=== PATIENT | female | born 1990 | race American Indian/Alaskan Native ===

== ENCOUNTER 2017-12-16 07:58 | Inpatient (IN) | payer BC, MEDICAID, OTHER ==
[2017-12-16] MEDS ORDERED: Lidocaine 1% 30 ML SDV INJECT PRN (08:16)
[2017-12-16] MEDS ORDERED: Lactated Ringers 1,000 ML IV SCH (08:16)
[2017-12-16] MEDS ORDERED: Nalbuphine 10 MG/1 ML Vial IM PRN (08:16)
[2017-12-16] MEDS ORDERED: Sodium Chloride 0.9% 10 ML Syringe FLUSH PRN (08:16)
[2017-12-16] MEDS ORDERED: Lactated Ringers 500 ML IV ONE (08:16)
[2017-12-16] MEDS ORDERED: Methylergonovine 0.2 MG/1 ML Amp IM PRN (08:16)
[2017-12-16] MEDS ORDERED: Ondansetron 4 MG/2 ML SDV IV PRN (08:16)
[2017-12-16] MEDS ORDERED: Oxytocin/Normal Saline 30 UNIT/500 ML BAG IV SCH ×2 (08:16→09:17)
[2017-12-16] MEDS ORDERED: Carboprost Tromethamine 250 MCG/1 ML Amp IM PRN (08:54)
[2017-12-16] MEDS ORDERED: Misoprostol 400 MCG (4 X 100 MCG TAB) RECTAL PRN (08:54)
[2017-12-16] MEDS ORDERED: Tranexamic Acid 1,000 MG in Sodium Chloride 0.9% 100 ML IV PRN (08:54)
[2017-12-16] MEDS ORDERED: Acetaminophen 325 MG Tab PO PRN (08:54)
[2017-12-16] MEDS ORDERED: Nalbuphine 10 MG/1 ML Vial ONE ×2 (09:05→09:06)
[2017-12-16] MEDS ORDERED: Zolpidem 5 MG Tab PO PRN (12:05)
[2017-12-16] MEDS ORDERED: Benzocaine/Menthol 20%-0.5% Spray 56 GM Canister TOP PRN (12:05)
[2017-12-16] MEDS ORDERED: Simethicone 80 MG Tab.Chew PO PRN (12:05)
[2017-12-16] MEDS: Ibuprofen 800 MG Tab PO PRN (20:32)
[2017-12-16] MEDS: Docusate Sodium 100 MG Cap PO PRN (20:32)
--- NOTE | 2017-12-16 21:58 | HP ---
HISTORY OF PRESENT ILLNESS: This patient is a 27-year-old 3, now para 2, AB1 patient, who is followed by Dr. May. This history and physical is done after the patient's vaginal delivery. The patient did have a very rapid spontaneous vaginal delivery by the nurses, and this was a viable female, who weighed 6 pounds 7 ounces and had scores of 8 and 9. Actually, I was not called to come for the delivery, but the nurses had also spoken to me about 10 minutes earlier to give and to get a Nubain 20 mg IM order, which I did give. The patient did rapidly deliver a short time later, and I was called and notified after the delivery occurred. I was in the clinic adjacent to the hospital, and when I received the call, I did immediately come to Labor and Delivery. The patient did not have any lacerations, and we were able to deliver the placenta spontaneous and intact. Estimated blood loss was approximately 250 mL. IV Pitocin was utilized in the period, and fundal massage was also utilized. Sponge and needle count and instrument count, etc., were correct. Her course is otherwise quite uncomplicated. A review of the EHR from the clinic shows that she is immune to rubella and is negative for group B Strep. She does have gestational diabetes, however, and she states that her 2- hour postprandial blood sugar last evening was 139, and actually, she had a 107 of 2-hour postprandial blood sugar a day before that, and her fasting blood sugars she reports are in the 78 to 95 range. Her HARIS is 01/02, and the patient is currently at 37 weeks 4 days' gestation. PAST MEDICAL HISTORY: She denies any knowledge of heart, lung, liver, or kidney disease. ALLERGIES: None known. MEDICATIONS AT PRESENT: vitamins. PREVIOUS SURGICAL HISTORY: Consists of appendectomy. FAMILY HISTORY: Noncontributory. SOCIAL HISTORY: [place] the [place] area with her boyfriend, Jose Daniel. She is a nonsmoker and does not use alcohol, and she does admit to using marijuana a little bit in the early , she states. PHYSICAL EXAMINATION: Vital Signs: All within normal limits. HEENT: The sclerae are nonicteric. Lungs: Clear to A. Heart: Regular rhythm without murmur. Abdomen: In the state, and fundus is firm. There is negative CVA tenderness. Please see our dictated delivery note also. Extremities: Negative. IMPRESSION: Gestational diabetes and at 37 weeks 4 days' gestation, who has had very rapid spontaneous vaginal delivery by nurses. The patient and baby remained very stable. We will continue to follow her closely in the period, and possibly, the patient may be able to go home tomorrow. [facility] /[id number]
[2017-12-17] MEDS: Ibuprofen 800 MG Tab PO PRN ×2 (04:48→18:15)
--- NOTE | 2017-12-17 06:28 | DEL ---
DATE: 12/16/2017 The patient has proceeded on for a rapid spontaneous vaginal delivery by the nurses. Actually, I have not received a call to come for Labor and Delivery because things happened so fast apparently, and the nurses did call me shortly after the delivery, and as I was finishing up matters in the adjacent clinic, I immediately came to the delivery room area. Angela did have a spontaneous rapid delivery as mentioned above, and she did have a viable female, who had scores of 8 and 9 and the weight was later reported as 6 pounds 7 ounces. We did closely inspect the vaginal vault, and there were no lacerations whatsoever. The placenta was delivered spontaneous and intact. Estimated blood loss was approximately 250 mL. A sample of cord blood was obtained of course. The patient and the baby have continued to do exceptionally well in the immediate period. IV Pitocin was utilized of course and the uterus did firm up very nicely. Sponge and instrument count was reported and confirmed to be correct. The patient remains very stable in the state. [facility] /[id number]
[2017-12-17] MEDS: Docusate Sodium 100 MG Cap PO PRN (08:54)
[2017-12-17] MEDS: Prenatal Multivitamin with Calcium/Folic Acid/Iron Tab PO SCH (08:54)
[2017-12-18] MEDS: Ibuprofen 800 MG Tab PO PRN (02:20)
[2017-12-18] MEDS: Docusate Sodium 100 MG Cap PO PRN ×2 (02:20→08:22)
[2017-12-18] MEDS: Prenatal Multivitamin with Calcium/Folic Acid/Iron Tab PO SCH (08:22)
--- NOTE | 2017-12-19 07:53 | DISCH ---
HISTORY OF PRESENT ILLNESS: This patient is a 27-year-old, 3, now para 2, AB 1 patient, who is followed by Dr. May. Please see our dictated history and physical for admission as well as her delivery note. Prenatally, the patient has had gestational diabetes, which has been under fairly good control by dietary measures. She did have an HARIS of 01/02, and she is actually at 37 weeks 4 days' gestation when she comes into the hospital in very active labor. Also, a review of her records showed that she is immune to rubella. She did admit to marijuana usage very early in the , but states that was a long time ago. She is negative for group B strep. Her hospital course revealed that she did proceed on very rapidly to have a rapid spontaneous vaginal delivery by the nurses. She did have a viable female, who weighed 6 pounds 7 ounces and had scores of 8 and 9. There were no lacerations. The placenta was spontaneous and intact. Actually, I was not called to come for the delivery, but the nurses did call me shortly after the delivery occurred, and I responded immediately since I was in the clinic adjacent to the hospital. Please see my dictated history and physical as well as delivery note as mentioned above. The patient and her baby had continued to do very well. She is breast-feeding and that appears to be quite well established. The patient remains afebrile, and her discharge hemoglobin today is 10.5. Her diet on discharge is regular. DISCHARGE INSTRUCTIONS: Consisted of to please call us at once if any questions or problems whatsoever or any problems with excessive bleeding, excess pain, or fever. She assures me that she will keep us closely informed. We did emphasize the importance of healthy well-balanced nutritional measures as well as adequate hydration. DISCHARGE MEDICATIONS: 1. Consisted of continuing to take her vitamins at home. 2. She will use either ibuprofen or Tylenol p.r.n. for any discomfort. 3. She also will use Colace p.r.n. constipation. FOLLOWUP APPOINTMENT: She states that she does have an appointment this coming already with Dr. May in the office for herself, and she will call the clinic this week and notify them to change that appointment for her baby girl. OPERATIONS AND PROCEDURES: Rapid spontaneous vaginal delivery of viable female, 6 pounds 7 ounces with scores of 8 and 9. No lacerations sustained. FINAL DIAGNOSES: 1. at 37 weeks 4 days' gestation, delivered. 2. The patient is a 3, now para 2, AB 1 patient. 3. Gestational diabetes. 4. Marijuana usage early in . [facility] /[id number]
== END 2017-12-18 12:40 | disposition home or self-care (01) | DRG 560 ==
LOC: DL.OBCHECK 07:58 → DL.OB 08:16 → OBSVTOIN 09:17
PROVIDERS: ADMIT Family Medicine; ATTEND Obstetrics & Gynecology
PROC: 10E0XZZ Delivery of Products of Conception, External Approach (ICD-10-PCS; principal; 2017-12-16)
DX: O24.420 Gestational diabetes mellitus in childbirth, diet controlled (principal); O62.3 Precipitate labor; Z3A.37 37 weeks gestation of pregnancy; Z37.0 Single live birth
CPT/HCPCS: 36415; 85027; A9270-GY; J2300; J2590; J7120

== ENCOUNTER 2019-09-08 16:59 | Inpatient (IN) | payer BC ==
[2019-09-08] MEDS ORDERED: Ondansetron 4 MG/2 ML SDV IVPUSH PRN (17:15)
[2019-09-08] MEDS ORDERED: fentaNYL 100 MCG/2 ML SDV IVPUSH PRN (17:15)
[2019-09-08] MEDS ORDERED: Sodium Chloride 0.9% 10 ML Syringe FLUSH PRN (17:15)
[2019-09-08] MEDS ORDERED: Lactated Ringers 1,000 ML IV ONE (17:15)
[2019-09-08] MEDS ORDERED: Oxytocin/Normal Saline 30 UNIT/500 ML BAG IV SCH (17:15)
[2019-09-08] MEDS ORDERED: Methylergonovine 0.2 MG/1 ML Amp IM PRN (17:15)
[2019-09-08] MEDS ORDERED: Lactated Ringers 1,000 ML IV SCH (17:15)
[2019-09-08] MEDS ORDERED: Misoprostol 400 MCG (4 X 100 MCG TAB) RECTAL PRN ×2 (17:15→20:39)
[2019-09-08] MEDS ORDERED: Tranexamic Acid 1,000 MG in Sodium Chloride 0.9% 100 ML IV PRN ×2 (17:15→20:39)
[2019-09-08] MEDS ORDERED: Lidocaine 1% 30 ML SDV INJECT PRN (17:15)
[2019-09-08] MEDS ORDERED: Carboprost Tromethamine 250 MCG/1 ML Amp IM PRN (17:15)
[2019-09-08] MEDS: Acetaminophen 325 MG Tab PO PRN (20:14)
[2019-09-08] MEDS ORDERED: Simethicone 80 MG Tab.Chew PO PRN (20:39)
[2019-09-08] MEDS ORDERED: Measles, Mumps & Rubella Vaccine 0.5 ML SDV SUBCUT ONE (20:39)
[2019-09-08] MEDS ORDERED: Acetaminophen 325 MG Tab PO PRN (20:39)
[2019-09-08] MEDS ORDERED: Benzocaine/Menthol 20%-0.5% Spray 56 GM Canister TOP PRN (20:39)
[2019-09-08] MEDS: Ibuprofen 800 MG Tab PO PRN (21:11)
[2019-09-09] MEDS: Ibuprofen 800 MG Tab PO PRN ×2 (05:50→18:13)
[2019-09-09] MEDS: Prenatal Multivitamin with Calcium/Folic Acid/Iron Tab PO SCH (09:24)
[2019-09-09] MEDS: Acetaminophen 325 MG Tab PO PRN ×3 (09:24→21:06)
[2019-09-09] MEDS: Docusate Sodium 100 MG Cap PO PRN ×2 (09:24→21:02)
--- NOTE | 2019-09-09 10:37 | HP ---
CHIEF COMPLAINT: Leakage of fluid with regular contractions. HISTORY OF PRESENT ILLNESS: A 28-year-old, 4, para 2-0-1-2, currently at 37-4/7 weeks based on her last menstrual period confirmed with 25-week ultrasound, presented to the hospital reporting clear rupture of fluid around 2 o'clock this afternoon, followed readily by regular contractions that were increasing in force and frequency. Nurse checking her at that time said that she was 3 cm dilated and 60% effaced. No mention of patient's previous precipitous deliveries and the patient allowed to proceed through labor on her own. She is denying any symptoms of preeclampsia. Reports that she has been doing well with controlling her carbohydrates and checking her blood sugars. No other acute concerns or problems at this time. PAST OBSTETRICAL HISTORY: 25-week anatomy ultrasound was normal. Cervical length 3.88 cm. Anterior placenta. 1-hour glucose of 133. Hepatitis C negative. RPR nonreactive. Hepatitis B negative. Rubella equivocal, retested 3rd trimester and remained equivocal. UDS positive for cannabinoids in the 2nd trimester. Blood type O positive. HIV negative. Gonorrhea and chlamydia negative. Tdap administered on 07/23/2019. Flu vaccine administered 02/28/2019. Group B strep negative. She has had some late care, history of 1 miscarriage, marijuana use, history of gestational diabetes, anemia of , and otherwise no major medical factors. MEDICATIONS: Included iron and vitamins. PAST MEDICAL HISTORY: Chlamydia in 2009. Gestational diabetes prior . SURGICAL HISTORY: Laparoscopic appendectomy in February 2014. FAMILY HISTORY: Mother alive with cervical cancer. Father and was unknown to her, but he did have a pair of twin sons. She has 3 sisters and 9 brothers, all are alive and well. Maternal grandmother is unknown. Maternal grandfather and had diabetes. Paternal grandmother, Mireya, has diabetes, Alzheimer disease, heart disease, and is alive. Paternal grandfather is alive and has congestive heart failure. No family history of defects, anesthesia problems, bleeding problems, seizures, cystic fibrosis, or clotting disorders. SOCIAL HISTORY: The patient and her boyfriend live in the [facility]. This is their 3rd child together. 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 His name is Jose Villatoro and he works as a it quality analyst at [employer]. His mother is alive and has breast cancer and diabetes. His father's history, he is unsure of. They have good supportive family in the area. OBSTETRICAL HISTORY: 1. 08/13/2010: 38 weeks 1 day gestation, vaginal delivery, male , weighing 7 pounds 13 ounces, 3544 g, delivered by Dr. Yao. No further delivery details were available. 2. 10/20/2016: 10 weeks 3 days gestation, spontaneous miscarriage. 3. 12/16/2017: 37 weeks 4 days, term vaginal delivery, female , weighing 6 pounds 7.2 ounces, 2925 g, noted precipitous delivery, attended by nursing staff. The patient had reported that the physician was called, but felt like it took a long time for him to get there. Nonetheless, she did deliver quickly when she felt the urge to push. Delivery was by Dr. Garcia here at [facility] MEDICATIONS: Iron 1 tablet p.o. twice daily and vitamin 1 daily. ALLERGIES: No known drug allergies. REVIEW OF SYSTEMS: No symptoms of preeclampsia. No chest pain. No shortness of breath. No vaginal bleeding. Good movement. No recent cough, fever, chills, or other concerning symptoms. PHYSICAL EXAMINATION: Vital Signs: BP 124/69, pulse of 75. She is afebrile. HEENT: Grossly unremarkable. Heart: Regular without murmur. Lungs: Clear to auscultation bilaterally. Abdomen: Soft and nontender. The patient is now and uterus is firm and below the umbilicus. On admission, nurse's note, gravid uterus, palpated vertex. heart tones 150 beats per minute at baseline with moderate beat- to-beat variability and accelerations noted. [place] contractions were not tracing very well, but seemed to be about every 3 minutes. Cervix was 3 cm dilated, 60% effaced, and -1 station. Upon my arrival, baby was on mother's abdomen, delivered by the nurse. Placenta not yet delivered. See delivery note for details. Extremities: No edema, erythema, or tenderness noted. LABORATORY DATA: COVID testing was negative. Glucose 70, hemoglobin 12.4, and platelets 329. AmniSure was positive. ASSESSMENT: 1. 37-4/7 weeks intrauterine based on last menstrual period, confirmed with 25-week ultrasound, now delivered. 2. 4, para 2-0-1-2 on admission, now 4, para 3-0-1-3. 3. Blood type O positive, rubella equivocal, group B Streptococcus negative. 4. Glucosuria of with a history of gestational diabetes, diet controlled in prior . Glucose normal on admission and normal glucose tolerance test this . 5. Obesity. 6. Late care. 7. Marijuana use. 8. History of miscarriage x1. 9. Anemia of , corrected. 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 11.History of precipitous vaginal delivery with another fast delivery today. PLAN: The patient and baby are both doing well. We are going to have them stay [id number] and initiate , which is already going quite well. Anticipate normal cares and discharge home from the hospital as soon as tomorrow or even the next day pending clinical course and family wishes. [facility] /[id number] BIA
--- NOTE | 2019-09-09 16:06 | PN ---
DATE: 09/09/2019 SUBJECTIVE: Post delivery day #1, patient is doing well, ambulating, tolerating regular diet, passing flatus, has not yet had a bowel movement, voiding well. Bleeding is similar to menses. seems to be going well. Denies any acute concerns or complaints. No fevers, no chills. No chest pain. No shortness of breath. No symptoms of preeclampsia and she denies any acute concerns. OBJECTIVE: Vital Signs: Temperature is 97.6, pulse 63, blood pressure 113/56, respiratory rate of 16, and O2 saturations 97% on room air. Heart: Regular without obvious murmur. Lungs: Clear to auscultation bilaterally. Abdomen: Soft, nontender. Fundus is firm and below the umbilicus. Extremities: No edema, erythema, or tenderness noted. LABORATORY DATA: No new ones required at this time. Admission hemoglobin was 12.4 and estimated blood loss at delivery only about 150 mL. ASSESSMENT: 1. Status post vaginal delivery, day #1. 2. 4, now para 3-0-1-3. 3. Blood type O positive, rubella equivocal and group B strep negative. 4. Obesity. 5. Marijuana use. 6. History of precipitous delivery. PLAN: Continue routine cares. Discussed with patient that since she delivered in the evening and the baby was only 37 weeks 4 days' gestation, we will plan on keeping her until tomorrow and discharging at that time. No other specific concerns or questions have arose and she is just anticipating normal course. [facility] /[id number] MTDMichael
[2019-09-10] MEDS: Ibuprofen 800 MG Tab PO PRN (05:55)
--- NOTE | 2019-09-10 08:49 | DEL ---
DATE: 09/08/2019 PREPROCEDURE DIAGNOSES: 1. 37-4/7 weeks intrauterine . 2. 4, para 2-0-1-2. 3. Blood type O positive, rubella equivocal, and group B Streptococcus negative. 4. History of gestational diabetes, glucosuria in the 3rd trimester, admission glucose of 70. 5. Obesity. 6. Late care. 7. Marijuana use. 8. History of miscarriage x1. 9. Anemia of . 10.Atypical squamous cells on prior Pap smear with positive HPV, needs Pap smear . 11.History of precipitous delivery not noted until after she delivered at this time. POSTPROCEDURE DIAGNOSES: 1. 37-4/7 weeks intrauterine . 2. 4, now para 3-0-1-3. 3. Blood type O positive, rubella equivocal, and group B Streptococcus negative. 4. History of gestational diabetes, glucosuria in the 3rd trimester, admission glucose of 70. 5. Obesity. 6. Late care. 7. Marijuana use. 8. History of miscarriage x1. 9. Anemia of . 10.Atypical squamous cells on prior Pap smear with positive HPV, needs Pap smear . 11.History of precipitous delivery not noted until after she delivered at this time. 12.Precipitous spontaneous vaginal delivery, attended by nursing staff. No complications and no lacerations. BRIEF HISTORY: A 28-year-old female admitted to the hospital after reporting spontaneous rupture of membranes followed by onset of contractions at around 2 o'clock this afternoon. At admission around 5 p.m., she was 3 cm dilated and 60% effaced. She was not complaining much of labor pains and keith very nicely. I had called to check on the patient. She was 8 cm dilated and while making my way into the hospital, she felt the urge to push and ended up delivering about 1 minute before I actually made it to the hospital going from 8 to delivered in only about 15 minutes; details as below. DETAILS: Per nursing report, the patient in dorsal lithotomy position on the bed being intact, she delivered a viable female in the OA position. Baby was dried, stimulated, and placed on mother's abdomen. I presented to the room at that time and took over on further delivery. I checked the umbilical cord and made sure there was sufficient delay, and then double clamps were placed and umbilical cord was cut by the father of the baby. Cord blood sample was then obtained and placenta delivered by gentle cord traction and concomitant uterine massage, inspected and intact. It was accompanied by a gush of blood, but uterine tone was excellent. Labia and vagina inspected and intact. No lacerations. COMPLICATIONS: None. ESTIMATED BLOOD LOSS: 150 mL. FINDINGS: Viable female infant. score of 9 and 9. Weight 3135g, 6#16oz. Initial vitals currently pending. [facility] /[id number] MTDD
[2019-09-10] MEDS: Docusate Sodium 100 MG Cap PO PRN (08:55)
[2019-09-10] MEDS: Prenatal Multivitamin with Calcium/Folic Acid/Iron Tab PO SCH (08:55)
[2019-09-10] MEDS: Acetaminophen 325 MG Tab PO PRN (08:55)
--- NOTE | 2019-09-11 06:34 | DISCH ---
ADMITTING DIAGNOSES: 1. 37-4/7 weeks by last menstrual period confirmed with 25-week ultrasound. 2. 4, para 2-0-1-2. 3. Blood type O positive, rubella equivocal, and group B streptococcus negative. 4. Anemia of . 5. History of precipitous deliveries. 6. Glucosuria with a history of gestational diabetes, prior . 7. Obesity. 8. Late care. 9. Marijuana use. 10.History of spontaneous x1. 11.History of abnormal Pap smear, atypical squamous cells of undetermined significance with positive high-risk human papillomavirus. Needs Pap smear . DISCHARGE DIAGNOSES: 1. 37-4/7 weeks by last menstrual period confirmed with 25-week ultrasound. 2. 4, now para 3-0-1-3, status post precipitous vaginal delivery without complications. 3. Blood type O positive, rubella equivocal, and group B streptococcus negative. 4. Anemia of . 5. History of precipitous deliveries. 6. Glucosuria with a history of gestational diabetes, prior . 7. Obesity. 8. Late care. 9. Marijuana use. 10.History of spontaneous x1. 11.History of abnormal Pap smear, atypical squamous cells of undetermined significance with positive high-risk human papillomavirus. Needs Pap smear . BRIEF HISTORY: A 28-year-old female who presented to the hospital in active labor and progressed very well without any additional medications or assistance. She went quickly from 8 cm to delivery under 15 minutes and was delivered by the nurse without complications. See admission history and physical and delivery note for details. There were no lacerations, and she did not receive anything for anesthesia. HOSPITAL COURSE: Has been good. She has been ambulating, tolerating regular diet. is going well. She is voiding, stooling without difficulties. No chest pain. No shortness of breath. Bleeding has been well controlled, and she has no concerns and is ready for discharge today. DISCHARGE CONDITION: Good. PHYSICAL EXAMINATION: General: Temperature is 97.6, pulse 81, blood pressure 130/57, respiratory rate of 18, and O2 saturation is 98% on room air. Heart: Regular without murmur. Lungs: Clear to auscultation bilaterally. Abdomen: Soft, nontender. Fundus is firm and below the umbilicus. Extremities: No edema, erythema, or tenderness noted. LABORATORY DATA: Admission hemoglobin 12.4, platelets 329, glucose of 70. COVID test negative. Repeat CBC not performed as EBL was only 150 mL. DISPOSITION: Home with family. FOLLOWUP: She will need a 6-week check in the office. Otherwise, she will be screened for depression again at the 2 day and 2 week well-child visits. MEDICATIONS: Ibuprofen 800 mg every 8 hours as needed for pain, Tylenol 650 mg every 8 hours as needed for pain, vitamins continue 1 daily, iron. She can continue the iron that she has at home until she finishes the bottle. INSTRUCTIONS: Routine post vaginal delivery instructions for a mother were provided and her questions answered. [facility] /[id number]
== END 2019-09-10 10:00 | disposition home or self-care (01) | DRG 560 ==
LOC: DL.OBCHECK 16:59 → DL.OB 17:15 → OBSVTOIN 19:36
PROVIDERS: ADMIT Family Medicine; ATTEND Family Medicine
PROC: 10E0XZZ Delivery of Products of Conception, External Approach (ICD-10-PCS; principal; 2019-09-08)
DX: O99.02 Anemia complicating childbirth (principal); D64.9 Anemia, unspecified; Z3A.37 37 weeks gestation of pregnancy; Z37.0 Single live birth; O99.214 Obesity complicating childbirth; E66.9 Obesity, unspecified; O99.324 Drug use complicating childbirth; F12.90 Cannabis use, unspecified, uncomplicated
CPT/HCPCS: 36415; 59409; 82962; 84112; 85027; 90471; 90707; A9270-GY; J2590; J7120; U0002

== ENCOUNTER 2023-11-07 00:10 | Inpatient (IN) | payer BC, MEDICAID ==
[~2023-11-07 00:10] MED LIST: Acetaminophen 325 MG Tab PO PRN; Carboprost Tromethamine 250 MCG/1 ML Amp IM PRN; Methylergonovine 0.2 MG/1 ML Amp IM PRN; Metoclopramide 10 MG/2 ML SDV IVPUSH PRN; Misoprostol 400 MCG (4 X 100 MCG TAB) RECTAL PRN; Ondansetron 4 MG/2 ML SDV IVPUSH PRN; Oxytocin/Normal Saline 30 UNIT/500 ML BAG IV SCH; Sodium Chloride 0.9% 10 ML Syringe FLUSH PRN; Tranexamic Acid 1,000 MG in Sodium Chloride 0.9% 100 ML IV PRN
[2023-11-07 00:39] LABS: HEMATOCRIT 33.3 % (37.0-47.0); HEMOGLOBIN 10.8 g/dL (12.0-16.0); MEAN CORPUSCULAR HEMOGLOBIN 27.1 pg (27.0-34.0); MEAN CORPUSCULAR HGB CONC 32.4 g/dL (33.0-35.0); MEAN CORPUSCULAR VOLUME 83.5 fL (80-100); RED BLOOD CELL COUNT 3.99 10^6/uL (4.2-5.4); WHITE BLOOD CELL COUNT,WBC 10.5 10^3/uL (5.0-10.0)
[2023-11-07] MEDS: Misoprostol 25 MCG (1/4 of 100 MCG) Tab VAG SCH (01:20)
[2023-11-07] MEDS: Lactated Ringers 1,000 ML IV SCH (10:02)
[2023-11-07] MEDS: Oxytocin/Normal Saline 30 UNIT/500 ML BAG IV SCH (10:03)
[2023-11-07] MEDS ORDERED: Carboprost Tromethamine 250 MCG/1 ML Amp IM PRN (15:23)
[2023-11-07] MEDS ORDERED: Acetaminophen 325 MG Tab PO PRN (15:23)
[2023-11-07] MEDS ORDERED: Tranexamic Acid 1,000 MG in Sodium Chloride 0.9% 100 ML IV PRN (15:23)
[2023-11-07] MEDS ORDERED: Oxytocin 10 Units/1 ML SDV IM PRN (15:23)
[2023-11-07] MEDS ORDERED: Sodium Chloride 0.9% 10 ML Syringe FLUSH PRN (15:23)
[2023-11-07] MEDS ORDERED: Simethicone 80 MG Tab.Chew PO PRN (15:23)
[2023-11-07] MEDS ORDERED: Acetaminophen/oxyCODONE 325-5 MG Tab PO PRN (15:23)
[2023-11-07] MEDS ORDERED: Misoprostol 400 MCG (4 X 100 MCG TAB) RECTAL PRN (15:23)
[2023-11-07] MEDS: Benzocaine/Menthol 20%-0.5% Spray 78 GM Cannister TOP PRN (17:15)
[2023-11-07] MEDS: Witch Hazel Medicated Pads 100/Jar TOP PRN (17:15)
[2023-11-07] MEDS: Ibuprofen 800 MG Tab PO SCH (17:15)
[2023-11-07] MEDS: Docusate Sodium 100 MG Cap PO PRN (17:16)
[2023-11-07] MEDS: Lactated Ringers 1,000 ML IV ONE (18:40)
[2023-11-07] MEDS: Lidocaine 1% 30 ML SDV INJECT ONE (18:40)
[2023-11-08] MEDS: Prenatal Multivitamin with Calcium/Folic Acid/Iron Tab PO SCH (08:44)
[2023-11-08] MEDS: Measles, Mumps & Rubella Vaccine 0.5 ML SDV SUBCUT ONE (08:45)
[2023-11-08 12:57] LABS: HEMATOCRIT 30.5 % (37.0-47.0); HEMOGLOBIN 9.8 g/dL (12.0-16.0)
== END 2023-11-08 15:55 | disposition home or self-care (01) | DRG 807 ==
LOC: DL.OB 00:10 → OBSVTOIN 13:07
PROVIDERS: ADMIT Student in an Organized Health Care Education/Training Program; ATTEND Student in an Organized Health Care Education/Training Program
PROC: 10E0XZZ Delivery of Products of Conception, External Approach (ICD-10-PCS; principal; 2023-11-07)
PROC: 10907ZC Drainage of Amniotic Fluid, Therapeutic from Products of Conception, Via Natural or Artificial Opening (ICD-10-PCS; 2023-11-07)
PROC: 3E0P7VZ Introduction of Hormone into Female Reproductive, Via Natural or Artificial Opening (ICD-10-PCS; 2023-11-07)
DX: O99.02 Anemia complicating childbirth (principal); Z37.0 Single live birth; Z3A.39 39 weeks gestation of pregnancy; O62.3 Precipitate labor
CPT/HCPCS: 36415; 59409; 85014; 85018; 85027; 90471; 90707; A9270-GY; J2590; J7120